=== PATIENT | male | born 1985 | race Caucasian/White ===

== ENCOUNTER 2018-11-10 10:49 | Emergency (ER) | payer OTHER ==
[2018-11-10] MEDS ORDERED: Multivit, Adult Inj 10 ML VIAL ONE (11:46)
[2018-11-10] MEDS ORDERED: Sodium Chloride 0.9% 1,000 ML ONE (11:46)
[2018-11-10] MEDS ORDERED: Thiamine HCl 200 MG/2 ML VIAL ONE (11:46)
[2018-11-10] MEDS ORDERED: Neomycin/Polymyxin/HC Otic Solution 10 ML BOT ONE (11:46)
[2018-11-10 12:00] LABS: Bilirubin Negative (Negative); Blood, Urine Trace (Negative); Clarity Clear (Clear); Glucose, Urine (Dipstick) Negative (Negative); Leukocyte Negative (Negative); Nitrite Negative (Negative); Protein, Urine (Dipstick) Negative (Neg-Trace); Specific Gravity, Urine 1.025 (1.005-1.030); Urobilinogen 0.2 mg/dL (0.2-1.0); pH, Urine 6.5 (5.0-9.0)
[2018-11-10 12:03] LABS: ALT (SGPT) 63 U/L (8-55); AST (SGOT) 98 U/L (5-34); Albumin 4.4 g/dL (3.5-5.0); Alkaline Phosphatase 105 U/L (40-150); Anion Gap 19 mmol/L (10-20); BUN (Urea Nitrogen) 4 mg/dL (8.9-20.6); Bilirubin, Total 1.4 mg/dL (0.2-1.2); Calc. Creatinine Clearance 0 mL/min (70-130); Calcium 9.7 mg/dL (7.8-10.44); Carbon Dioxide 26 mmol/L (22-29); Chloride 83 mmol/L (98-107); Estimated GFR-MDRD Greater than 90; Globulin 3.4 g/dL (2.4-3.5); Glucose 117 mg/dL (70-105); Lipase 40 U/L (8-78); Magnesium 1.6 mg/dL (1.6-2.6); Protein, Total 7.8 g/dL (6.0-8.3); Sodium 125 mmol/L (136-145)
[2018-11-10 12:05] LABS: RBC/HPF 0-3 HPF (0-3); WBC/HPF 0-3 HPF (0-3)
[2018-11-10 12:06] LABS: Bacteria/HPF Rare-Few HPF (None Seen); Squamous Epithelial 0-3 HPF (0-3)
[2018-11-10 12:08] LABS: Potassium 2.6 mmol/L (3.5-5.1)
[2018-11-10 12:10] LABS: #Basophils 0.1 thou/uL (0.0-0.2); #Eosinphils 0.1 thou/uL (0.0-0.7); #Lymphocytes 1.9 thou/uL (1.20-3.40); #Monocytes 0.7 thou/uL (0.11-0.59); #Neutrophils 4.3 thou/uL (1.40-6.50); %Basophils 1.6 % (0.0-1.0); %Monocytes 10.2 % (0.0-10.0); %Neutrophils 60.2 % (42.0-75.0); Hemoglobin 14.8 g/dL (14.0-18.0); Mean Corpuscular HGB CONC 36.8 g/dL (32.0-36.0); Mean Corpuscular Hemoglobin 34.7 pg (27.0-31.0); Mean Corpuscular Volume 94.3 fL (78.0-98.0); Mean Platelet Volume 5.5 fL (7.4-10.4); Platelet Count 337 thou/uL (130-400); RBC Distribution Width 10.2 % (11.5-14.5); Red Blood Cell (RBC) Count 4.26 mill/uL (4.70-6.10); White Blood Cell (WBC) Count 7.1 thou/uL (4.8-10.8)
[2018-11-10] MEDS ORDERED: Potassium Chloride 20 MEQ/100 ML PREMIX BAG ONE (12:17)
[2018-11-10] MEDS ORDERED: Lorazepam 2 MG/ML VIAL ONE ×2 (12:30→18:20)
[2018-11-10] MEDS ORDERED: Potassium Chloride 20 MEQ TAB ONE ×2 (12:31→17:31)
[2018-11-10] MEDS ORDERED: Metoprolol Tartrate 5 MG/5 ML VIAL ONE ×2 (12:31→17:31)
[2018-11-10] MEDS ORDERED: NS 0.9% w/ 40 MEQ KCL 1,000 ML IV ONE (12:31)
[2018-11-10] MEDS ORDERED: Magnesium Sulfate 2 GM/NS 0.9% 50 ML BAG ONE (12:34)
[2018-11-10 16:39] LABS: Anion Gap 15 mmol/L (10-20); BUN (Urea Nitrogen) Less than 4 mg/dL (8.9-20.6); Calc. Creatinine Clearance 0 mL/min (70-130); Calcium 8.8 mg/dL (7.8-10.44); Carbon Dioxide 25 mmol/L (22-29); Chloride 93 mmol/L (98-107); Estimated GFR-MDRD Greater than 90; Glucose 105 mg/dL (70-105); Magnesium 2.2 mg/dL (1.6-2.6); Potassium 3.3 mmol/L (3.5-5.1); Sodium 130 mmol/L (136-145)
[2018-11-10] MEDS ORDERED: Metoprolol Tartrate 50 MG TAB ONE (17:31)
== END 2018-11-10 20:30 ==
LOC: MADERS 10:49
DX: A08.4 Viral intestinal infection, unspecified (principal); E87.6 Hypokalemia; E78.1 Pure hyperglyceridemia; I10 Essential (primary) hypertension; F43.10 Post-traumatic stress disorder, unspecified; F17.210 Nicotine dependence, cigarettes, uncomplicated; Z79.899 Other long term (current) drug therapy
CPT/HCPCS: 36415; 80053; 80307; 81003; 81015; 83690; 83735; 84484; 85025; 93005; 94760; 96365; 96366; 96367; 96372; 96375; 96376; J2060; J3411; J3475; J3480; J7050